=== PATIENT | female | born 2000 | race African-American/Black ===

== ENCOUNTER 2022-11-28 18:14 | Emergency (ER) | payer BC, SELFPAY ==
[2022-11-28 18:38] VITALS: BP 147/91; PULSE 86; RESP 18; TEMP 36.6; O2SAT 100
[2022-11-28 20:20] VITALS: BP 146/98; PULSE 84; RESP 14; TEMP 36.6; O2SAT 100
[2022-11-28 21:10] LABS: Basophils Percent Auto 0.2 % (0.2-1.2); Eosinophils Absolute Auto 0.1 K/mm3 (0-0.3); Eosinophils Percent Auto 1.2 % (0-4.4); Hematocrit 33.8 % (37.0-47.0); Hemoglobin 11.2 g/dL (12.0-15.0); Immature Granulocyte Absolute 0.03 K/mm3 (0.00-0.031); Immature Granulocyte Percent A 0.4 % (0-0.5); Lymphocytes Absolute Auto 2.16 K/mm3 (0.9-3.2); Lymphocytes Percent Auto 26.1 % (18.3-44.2); Mean Corpuscular HGB Conc 33.1 g/dl (32-36); Mean Corpuscular Hemoglobin 31.1 pg (26-34); Mean Corpuscular Volume 93.9 fl (80-100); Mean Platelet Volume 9.8 fl (7.4-10.4); Monocytes Absolute Auto 0.6 K/mm3 (0.1-0.6); Monocytes Percent Auto 6.7 % (2.6-8.5); Neutrophils Absolute Auto 5.4 K/mm3 (1.3-6.7); Neutrophils Percent Auto 65.4 % (45.5-73.1); Platelet Count Result 304 k/mm3 (150-375); Red Cell Distribution Width 12.5 % (11.5-14.5); White Blood Count 8.3 K/mm3 (4.5-10.0)
[2022-11-28 21:28] LABS: Alanine Aminotransferase 21 U/L (6-35); Albumin Level 4.1 g/dL (3.5-5.1); Alkaline Phosphatase 63 U/L (38-126); Anion Gap 7 mmol/L (8-16); Aspartate Amino Transferase 23 U/L (14-36); Bilirubin,Total 0.7 mg/dL (0.2-1.3); Blood Urea Nitrogen 9 mg/dL (7-17); Calcium 8.7 mg/dL (8.4-10.2); Carbon Dioxide 27 mmol/L (22-30); Chloride 107 mmol/L (98-107); Estimated CRCL calculation 123 ml/min; Estimated Glomerular Filt Rate > 60; Glucose 103 mg/dL (65-110); Potassium 3.5 mmol/L (3.4-5.0); Sodium 141 mmol/L (137-145)
--- NOTE | 2022-11-28 21:49 | ED.GENADULT ---
HPI - General Adult General Chief complaint: Unspecified Stated complaint: HIV exposure Time Seen by Provider: 11/28/22 20:21 History of Present Illness HPI narrative: 22-year-old female here for evaluation with concern for STI. States she was intoxicated at a resort in [place] 2 days ago and had intercourse with one of the men who worked at the resort. She is unsure if she used protection. Wants postexposure prophylaxis for HIV. Saw her primary care doctor virtually who prescribed it but apparently insurance did not cover it because he practices in [place]. She is asymptomatic. Related Data Allergies Allergy/AdvReac Type Severity Reaction Status Date / Time No Known Allergies Allergy Verified 11/28/22 18:41 Review of Systems Review of Systems: Gen.: Denies fevers or chills Eyes: Denies eye pain or visual change ENT: Denies congestion Respiratory: Denies shortness of breath or cough CV: Denies chest pain or palpitations GI: Denies abdominal pain nausea, emesis or diarrhea denies burning, urgency, frequency or hematuria Musculoskeletal: Denies back pain or muscle pain Neuro: Denies numbness, tingling, weakness or focal weakness Skin: Denies rash Except as documented, all other systems reviewed and negative Exam Narrative: Gen: Alert, oriented, no acute distress Eyes: EOMI, no icterus Pulm: Respirations even and unlabored, symmetric thorax expansion, no audible stridor or visible cyanosis CV: Regular rate per telemetry GI: No distension, no voluntary/involuntary guarding Neuro: AOx4, moves all extremities without apparent difficulty or weakness, follows commands Skin: No jaundice, no visible bruising, rashes, lesions or wounds on exposed skin Psych: Normal mood/affect, insight/judgement good, adequate fund of knowledge, recent/remote memory intact Course Vital Signs Vital signs: Vital Signs Temperature 97.8 F 11/28/22 18:38 Pulse Rate 86 11/28/22 18:38 Respiratory Rate 18 11/28/22 18:38 Blood Pressure 147/91 H 11/28/22 18:38 Pulse Oximetry 100 11/28/22 18:38 Oxygen Delivery Room Air 11/28/22 18:38 Temperature 98 F 11/28/22 21:54 Pulse Rate 80 11/28/22 21:54 Respiratory Rate 15 11/28/22 21:54 Blood Pressure 150/100 H 11/28/22 21:54 Pulse Oximetry 99 11/28/22 21:54 Oxygen Delivery Room Air 11/28/22 18:38 Medical Decision Making MDM Narrative Medical decision making narrative: 22-year-old female requesting postexposure prophylaxis treatment. Explained to patient that she does not necessarily meet criteria for this but she is insistent. We will send treatment to pharmacy, LFTs and creatinine are stable. Sent down other STI swabs as well, patient is aware she needs to follow-up on the results of these. We discussed return precautions and she voiced understanding. Vital Signs Vital Signs: Vital Signs Temperature 97.8 F 11/28/22 18:38 Pulse Rate 86 11/28/22 18:38 Respiratory Rate 18 11/28/22 18:38 Blood Pressure 147/91 H 11/28/22 18:38 Pulse Oximetry 100 11/28/22 18:38 Oxygen Delivery Room Air 11/28/22 18:38 Temperature 98 F 11/28/22 21:54 Pulse Rate 80 11/28/22 21:54 Respiratory Rate 15 11/28/22 21:54 Blood Pressure 150/100 H 11/28/22 21:54 Pulse Oximetry 99 11/28/22 21:54 Oxygen Delivery Room Air 11/28/22 18:38 Lab Data 11/28/22 21:04 11/28/22 21:04 Labs: Lab Results 11/28/22 11/28/22 Range/Units 21:04 21:39 WBC 8.3 (4.5-10.0) K/mm3 RBC 3.60 L (4.2-5.4) M/mm3 Hgb 11.2 L (12.0-15.0) g/dL Hct 33.8 L (37.0-47.0) % MCV 93.9 (80-100) fl MCH 31.1 (26-34) pg MCHC 33.1 (32-36) g/dl RDW 12.5 (11.5-14.5) % Plt Count 304 (150-375) k/mm3 MPV 9.8 (7.4-10.4) fl Immature Gran % (Auto) 0.4 (0-0.5) % Neut % (Auto) 65.4 (45.5-73.1) % Lymph % (Auto) 26.1 (18.3-44.2) % [place] % (Auto) 6.7 (2.6-8.5) % Eos % (Auto) 1.2 (0-4.4
[2022-11-28 21:54] VITALS: BP 150/100; PULSE 80; RESP 15; TEMP 36.6; O2SAT 99
[2022-12-04 11:42] LABS: HIV 1 RNA PCR Not Detected Copies/mL; HIV 1 RNA PCR Not Detected Log cps/mL
== END 2022-11-28 21:55 | disposition home or self-care (01) ==
PROVIDERS: Emergency Provider Physician Assistant
DX: Z11.3 Encounter for screening for infections with a predominantly sexual mode of transmission (principal)
CPT/HCPCS: 36415; 80053; 81025; 85025; 87536; 99283